=== PATIENT | female | born 1945 | race Caucasian/White ===

== ENCOUNTER 2017-07-16 19:26 | Inpatient (IN) | payer MEDICARE, MEDICAID ==
[~2017-07-16] VITALS: Ht 154.9 cm; Wt 82.6 kg
[~2017-07-16 19:26] MED LIST: AMLO10TA4 PO; AMLO1TAB39 PO; ATOR20TA PO; ATOR20TA65 PO; DILT180C54 PO; FURO20TA4 PO; LORA10TA7 PO; MECL-109 PO; MONT10TA21 PO; MONT10TA24 PO; POTA20TA82 PO; PROAIR INH; RIVA20TA PO; SOTA80TA PO
[2017-07-16] MEDS ORDERED: NITROGLYCERIN OINT 1GM/INCH UDPKT TD STA (20:21)
[2017-07-16] MEDS ORDERED: ONDANSETRON HCL 4MG/2ML VIAL IV STA (20:21)
[2017-07-16] MEDS ORDERED: ASPIRIN 81MG TABLET PO STA (20:21)
[2017-07-16] MEDS ORDERED: MORPHINE SULFATE 4 MG/ML CPJ (NOT FOR IM USE) IV STA (20:21)
[2017-07-16 20:37] LABS: BASOPHILS % 1.3 % (0.0-2.0); EOSINOPHILS % 2.2 % (0.0-5.0); HEMOGLOBIN. 11.5 g/dL (12.0-16.0); MEAN CORPUSCULAR HEMOGLOBIN 25.4 pg (28.0-32.0); MEAN CORPUSCULAR VOLUME 77.6 fL (81.0-99.0); MEAN PLATELET VOLUME 8.7 fl (7.4-10.4); MONOCYTES % 8.3 % (2.0-8.0); NEUTROPHILS % 64.2 % (40.0-76.0); PLATELET 287 x1000/uL (130-400); RED BLOOD CELL COUNT 4.51 mill/uL (4.2-5.4); RED CELL DISTRIBUTION WIDTH 15.9 % (11.6-14.6)
[2017-07-16 20:42] LABS: CHLORIDE 109 mEq/L (98-107)
[2017-07-16 20:47] LABS: CARBON DIOXIDE 27 mEq/L (21-32)
[2017-07-16 20:53] LABS: CREATINE KINASE 100 IU/L (26-192); TROPONIN I < 0.02 ng/mL (0.00-0.04)
[2017-07-16 20:58] LABS: CREATINE KINASE MB FRACTION 1.5 ng/mL (0.5-3.6)
[2017-07-16] MEDS ORDERED: CLONIDINE 0.1MG TABLET PO PRN (21:00)
[2017-07-16] MEDS ORDERED: ZOLPIDEM TARTRATE 5MG TABLET PO PRN (21:00)
[2017-07-16] MEDS ORDERED: MAGNESIUM/ALUMINUM HYDROXIDE/SIMETHICONE 30ML UDC PO PRN (21:00)
[2017-07-16] MEDS ORDERED: GUAIFENESIN 200MG/10ML SUGAR FREE UDC PO PRN (21:00)
[2017-07-16] MEDS ORDERED: MORPHINE SULFATE 2 MG/ML CPJ (NOT FOR IM USE) IV PRN (21:00)
[2017-07-16] MEDS ORDERED: ACETAMINOPHEN 325MG TABLET PO PRN (21:00)
[2017-07-16] MEDS ORDERED: DIPHENHYDRAMINE 50MG/ML VIAL IV PRN (21:00)
[2017-07-16] MEDS ORDERED: NA PHOS,M-B/NA PHOS,DI-BA ENEMA 118ML PR PRN (21:00)
[2017-07-16] MEDS ORDERED: ONDANSETRON HCL 4MG/2ML VIAL IV PRN (21:00)
[2017-07-16] MEDS ORDERED: LORAZEPAM 2MG/ML CPJ IV PRN (21:00)
[2017-07-16] MEDS ORDERED: DOCUSATE SODIUM 100MG CAPSULE PO PRN (21:00)
[2017-07-16] MEDS ORDERED: IPRATROPIUM/ALBUTEROL 0.5-3(2.5)MG/3ML NEB INH PRN (21:00)
[2017-07-16 21:04] LABS: INR 1.5; PARTIAL THROMBOPLASTIN TIME 32.7 sec (23.4-31.0); PROTHROMBIN TIME 15.4 sec (9.4-11.6)
[2017-07-16] MEDS: TRAMADOL 50MG TABLET PO PRN (23:05)
[2017-07-16] MEDS: DILTIAZEM HCL 60MG TABLET PO SCH (23:06)
[2017-07-16] MEDS ORDERED: DEXTROSE 50% WATER 50ML SYRINGE IV PRN (23:15)
[2017-07-16] MEDS ORDERED: POTASSIUM CHLORIDE 20MEQ TABLET SR PO ONE (23:15)
[2017-07-17] MEDS ORDERED: DEXL60CA3 PO (00:15)
[2017-07-17] MEDS: TRAMADOL 50MG TABLET PO PRN (04:23)
[2017-07-17 04:50] LABS: CLARITY URINE CLEAR (CLEAR); COLOR URINE YELLOW (YELLOW); KETONES URINE NEGATIVE (NEGATIVE); LEUKOCYTE ESTERASE URINE NEGATIVE (NEGATIVE); NITRITE URINE NEGATIVE (NEGATIVE); OCCULT BLOOD URINE 1+ (NEGATIVE); PH URINE 5.5 (4.5-8.0); PROTEIN URINE NEGATIVE (NEGATIVE); SPECIFIC GRAVITY URINE 1.016 (1.005-1.030); UROBILINOGEN URINE 0.2 E.U./dL (0.2-1.0)
[2017-07-17] MEDS: DILTIAZEM HCL 60MG TABLET PO SCH ×2 (05:13→13:47)
[2017-07-17 06:33] LABS: *AMPHETAMINES SCREEN URINE NEGATIVE (NEGATIVE); *BARBITURATES SCREEN URINE NEGATIVE (NEGATIVE); *BENZODIAZEPINES SCREEN URINE NEGATIVE (NEGATIVE); *COCAINE SCREEN URINE NEGATIVE (NEGATIVE); CANNABINOID URINE SCREEN NEGATIVE (NEGATIVE); METHADONE URINE SCREEN NEGATIVE (NEGATIVE); OPIATES URINE SCREEN PRESUMTIVE POSITIVE (NEGATIVE); PHENCYCLIDINE URINE SCREEN NEGATIVE (NEGATIVE)
[2017-07-17] MEDS: BLOOD SUGAR DIAGNOSTIC STRIP TEST SCH ×4 (06:45→21:00)
[2017-07-17] MEDS: INSULIN LISPRO 100 UNITS/ML SUBCUT SCH ×4 (08:10→21:00)
[2017-07-17] MEDS: ZINC SULFATE 220 MG ( 50 ) CAPSULE PO SCH (08:53)
[2017-07-17] MEDS: LOSARTAN POTASSIUM 50 MG TABLET PO SCH (08:54)
[2017-07-17] MEDS: ATORVASTATIN CALCIUM 20MG TABLET PO SCH (08:57)
[2017-07-17] MEDS ORDERED: RIVAROXABAN 10 MG TABLET PO SCH (09:00)
[2017-07-17] MEDS: FAMOTIDINE 20MG/2ML VIAL IV SCH ×2 (09:15→21:00)
[2017-07-17] MEDS: LORATADINE 10MG TABLET PO SCH (12:02)
[2017-07-17] MEDS ORDERED: LORAZEPAM 0.5MG TABLET PO NR (16:40)
[2017-07-17] MEDS ORDERED: MONTELUKAST SODIUM 10MG TABLET PO SCH (17:00)
[2017-07-17] MEDS: DILTIAZEM HCL 90MG TABLET PO SCH (22:00)
[2017-07-18] MEDS: BLOOD SUGAR DIAGNOSTIC STRIP TEST SCH ×2 (06:05→12:17)
[2017-07-18] MEDS: DILTIAZEM HCL 90MG TABLET PO SCH ×2 (06:13→13:14)
[2017-07-18 06:27] LABS: BASOPHILS % 1.2 % (0.0-2.0); EOSINOPHILS % 5.1 % (0.0-5.0); HEMATOCRIT. 36.1 % (36.0-48.0); HEMOGLOBIN. 11.7 g/dL (12.0-16.0); LYMPHOCYTES % 38.1 % (20.0-50.0); MEAN CORPUSCULAR HEMOGLOBIN 25.1 pg (28.0-32.0); MEAN CORPUSCULAR VOLUME 77.7 fL (81.0-99.0); MEAN PLATELET VOLUME 8.9 fl (7.4-10.4); MONOCYTES % 8.5 % (2.0-8.0); NEUTROPHILS % 47.1 % (40.0-76.0); PLATELET 298 x1000/uL (130-400); RED BLOOD CELL COUNT 4.65 mill/uL (4.2-5.4)
[2017-07-18] MEDS: INSULIN LISPRO 100 UNITS/ML SUBCUT SCH ×2 (07:19→12:17)
[2017-07-18] MEDS ORDERED: LORAZEPAM 0.5MG TABLET PO SCH (08:00)
[2017-07-18] MEDS: ZINC SULFATE 220 MG ( 50 ) CAPSULE PO SCH (08:14)
[2017-07-18] MEDS: FAMOTIDINE 20MG/2ML VIAL IV SCH (08:14)
[2017-07-18] MEDS: LORATADINE 10MG TABLET PO SCH (08:14)
[2017-07-18] MEDS: LOSARTAN POTASSIUM 50 MG TABLET PO SCH (08:14)
[2017-07-18] MEDS: ATORVASTATIN CALCIUM 20MG TABLET PO SCH (08:14)
[2017-07-18 08:19] LABS: CHLORIDE 105 mEq/L (98-107)
[2017-07-18 08:38] LABS: CARBON DIOXIDE 26 mEq/L (21-32)
[2017-07-18 14:42] VITALS: BP 122/66
[2017-07-18] MEDS ORDERED: RIVAROXABAN 20 MG TABLET PO SCH (17:00)
== END 2017-07-18 15:06 | disposition home or self-care (01) | DRG 309 ==
LOC: EDBEDREQ 20:44 → SUPCPDRO 20:57 → ENRESERV 21:20 → ER 21:46 → 7WST 22:00
PROVIDERS: ADMIT Internal Medicine; ATTEND Internal Medicine
DX: I48.91 Unspecified atrial fibrillation (principal); E44.1 Mild protein-calorie malnutrition; J44.9 Chronic obstructive pulmonary disease, unspecified; D64.9 Anemia, unspecified; I51.81 Takotsubo syndrome; R07.89 Other chest pain; I25.2 Old myocardial infarction; I10 Essential (primary) hypertension; G43.909 Migraine, unspecified, not intractable, without status migrainosus; E78.5 Hyperlipidemia, unspecified; E66.9 Obesity, unspecified; E78.00 Pure hypercholesterolemia, unspecified; E87.6 Hypokalemia; F41.9 Anxiety disorder, unspecified; G47.33 Obstructive sleep apnea (adult) (pediatric); K21.9 Gastro-esophageal reflux disease without esophagitis; Z88.1 Allergy status to other antibiotic agents; Z91.041 Radiographic dye allergy status; Z88.0 Allergy status to penicillin; Z79.01 Long term (current) use of anticoagulants; Z79.82 Long term (current) use of aspirin; Z91.09 Other allergy status, other than to drugs and biological substances; Z79.899 Other long term (current) drug therapy; Z68.34 Body mass index [BMI] 34.0-34.9, adult
CPT/HCPCS: 36415; 71010; 80048; 80053; 80061; 80305; 81001; 82550; 82553; 82962; 83036; 83690; 83735; 83880; 84443; 84484; 85025; 85610; 85730; 87086; 93005; 93306; 93970; 96374; 96375; 99291; J2270; J2405; J3490

== ENCOUNTER 2017-08-26 20:44 | Observation (INO) | payer MEDICARE, MEDICAID ==
[~2017-08-26] VITALS: Ht 154.9 cm; Wt 81.6 kg
[~2017-08-26 20:44] MED LIST changes: -ATOR20TA65 PO; +DEXL60CA3 PO
[2017-08-26] MEDS ORDERED: MORPHINE SULFATE 4 MG/ML CPJ (NOT FOR IM USE) IV STA (21:32)
[2017-08-26] MEDS ORDERED: SODIUM CHLORIDE 0.9% 1,000 ML IV ONE (21:32)
[2017-08-26] MEDS ORDERED: ONDANSETRON HCL 4MG/2ML VIAL IV STA (21:32)
[2017-08-26 22:10] LABS: HEMATOCRIT. 34.5 % (36.0-48.0); HEMOGLOBIN. 10.9 g/dL (12.0-16.0); MEAN CORPUSCULAR HEMOGLOBIN 24.3 pg (28.0-32.0); MEAN CORPUSCULAR VOLUME 76.4 fL (81.0-99.0); MEAN PLATELET VOLUME 8.8 fl (7.4-10.4); PLATELET 286 x1000/uL (130-400); RED BLOOD CELL COUNT 4.51 mill/uL (4.2-5.4)
[2017-08-26 22:17] LABS: CHLORIDE 101 mEq/L (98-107)
[2017-08-26 22:20] LABS: INR 1.4; PARTIAL THROMBOPLASTIN TIME 31.3 sec (23.4-31.0)
[2017-08-26 22:23] LABS: CARBON DIOXIDE 28 mEq/L (21-32)
[2017-08-26 22:27] LABS: TROPONIN I < 0.02 ng/mL (0.00-0.04)
[2017-08-26 22:31] LABS: PLATELET ESTIMATE NORMAL
[2017-08-26] MEDS ORDERED: ASPIRIN 325MG EC TABLET PO ONE (23:00)
[2017-08-27 02:00] VITALS: BP 112/69
[2017-08-27] MEDS ORDERED: MORPHINE SULFATE 4 MG/ML CPJ (NOT FOR IM USE) IV PRN (03:45)
[2017-08-27 04:00] VITALS: BP 122/64
[2017-08-27] MEDS: SODIUM CHLORIDE 0.9% 1,000 ML IV SCH ×2 (07:05→21:16)
[2017-08-27 07:31] LABS: TROPONIN I < 0.02 ng/mL (0.00-0.04)
[2017-08-27 08:30] VITALS: BP 118/69
[2017-08-27] MEDS: PANTOPRAZOLE SODIUM 40 MG/VIAL IV SCH (08:43)
[2017-08-27] MEDS: ASPIRIN 81MG TABLET PO SCH (08:44)
[2017-08-27] MEDS: METOPROLOL TARTRATE 50MG TABLET PO SCH ×2 (08:44→21:11)
[2017-08-27] MEDS ORDERED: ENOXAPARIN 40MG/0.4ML SYR SUBCUT SCH (09:00)
[2017-08-27 12:57] VITALS: BP 112/65
[2017-08-27] MEDS ORDERED: CLONIDINE 0.1MG TABLET PO PRN (14:30)
[2017-08-27] MEDS ORDERED: ACETAMINOPHEN 500MG TABLET PO PRN (14:30)
[2017-08-27] MEDS ORDERED: CLONIDINE 0.2MG TABLET PO PRN (14:30)
[2017-08-27 15:44] LABS: AMYLASE 25 IU/L (25-115)
[2017-08-27 16:52] VITALS: BP 129/6
[2017-08-27] MEDS ORDERED: RIVAROXABAN 20 MG TABLET PO SCH (17:00)
[2017-08-27 21:36] VITALS: BP 136/58
[2017-08-28] VITALS: BP_SYST 124; BP_SYST 128; BP_SYST 130; BP_DIAS 61; BP_DIAS 64; BP_DIAS 66
[2017-08-28 04:00] VITALS: BP 119/68
[2017-08-28 06:07] LABS: HEMATOCRIT. 36.1 % (36.0-48.0); HEMOGLOBIN. 11.8 g/dL (12.0-16.0); MEAN CORPUSCULAR HEMOGLOBIN 24.7 pg (28.0-32.0); MEAN CORPUSCULAR VOLUME 75.7 fL (81.0-99.0); MEAN PLATELET VOLUME 8.9 fl (7.4-10.4); PLATELET 281 x1000/uL (130-400); RED BLOOD CELL COUNT 4.76 mill/uL (4.2-5.4)
[2017-08-28 06:51] LABS: CHLORIDE 104 mEq/L (98-107)
[2017-08-28 08:00] LABS: CARBON DIOXIDE 26 mEq/L (21-32); HDL CHOLESTEROL 54 mg/dL (40-59); LDL CHOLESTEROL 60 mg/dL (5-100); TROPONIN I < 0.02 ng/mL (0.00-0.04)
[2017-08-28] MEDS: METOPROLOL TARTRATE 50MG TABLET PO SCH (09:00)
[2017-08-28 09:07] VITALS: BP 98/52
[2017-08-28] MEDS: ASPIRIN 81MG TABLET PO SCH (09:36)
[2017-08-28] MEDS: PANTOPRAZOLE SODIUM 40 MG/VIAL IV SCH (09:38)
[2017-08-28] MEDS ORDERED: POTASSIUM CHLORIDE 20MEQ TABLET SR PO NR (11:00)
[2017-08-28] MEDS ORDERED: LORATADINE 10MG TABLET PO SCH (11:00)
[2017-08-28] MEDS ORDERED: DILTIAZEM HCL 30MG TABLET PO SCH (12:00)
[2017-08-28 12:08] VITALS: BP 102/58
[2017-08-28] MEDS ORDERED: GUAIFENESIN 200MG/10ML SUGAR FREE UDC PO PRN (12:45)
[2017-08-28] MEDS ORDERED: PROMETHAZINE LIQUID 6.25MG/5ML 118ML PO PRN (12:45)
[2017-08-28] MEDS ORDERED: AZITHROMYCIN 500 MG in DEXT 5% WATER 250 ML IV SCH (14:00)
[2017-08-28 16:35] VITALS: BP 108/73
[2017-08-28 17:56] LABS: PLATELET ESTIMATE NORMAL
== END 2017-08-28 16:25 | disposition home or self-care (01) ==
LOC: ER 21:23 → 6WST 23:28 → INTOOBSV 23:28 → ENRESERV 23:38
PROVIDERS: ADMIT Internal Medicine; ATTEND Internal Medicine
DX: R42 Dizziness and giddiness (principal); R10.84 Generalized abdominal pain; I48.2 Chronic atrial fibrillation; E78.00 Pure hypercholesterolemia, unspecified; E66.9 Obesity, unspecified; K21.9 Gastro-esophageal reflux disease without esophagitis; D64.9 Anemia, unspecified; J45.909 Unspecified asthma, uncomplicated; I51.81 Takotsubo syndrome; I11.9 Hypertensive heart disease without heart failure; Z88.0 Allergy status to penicillin; Z88.8 Allergy status to other drugs, medicaments and biological substances; Z88.6 Allergy status to analgesic agent; Z91.041 Radiographic dye allergy status
CPT/HCPCS: 36415; 70450; 71010; 76705; 80053; 80061; 82150; 83690; 83735; 83880; 84443; 84484; 85025; 85379; 85610; 85730; 86850; 86900; 86901; 93005; 93880; 96361; 96365; 96375; 96376; 99285; C9113; G0378; J0456; J2270; J2405; J7030; 96374; J1650; J7060

== ENCOUNTER 2018-01-11 09:57 | Emergency (ER) | payer MEDICARE, MEDICAID ==
[~2018-01-11] VITALS: Ht 154.9 cm; Wt 81.0 kg
[2018-01-11] MEDS ORDERED: SODIUM CHLORIDE 0.9% 1,000 ML IV ONE ×2 (11:02→13:30)
[2018-01-11] MEDS ORDERED: ONDANSETRON HCL 4MG/2ML VIAL IV STA (11:02)
[2018-01-11] MEDS ORDERED: MORPHINE SULFATE 4 MG/ML CPJ (NOT FOR IM USE) IV STA (11:02)
[2018-01-11] MEDS ORDERED: FAMOTIDINE 20MG/2ML VIAL IV STA (11:02)
[2018-01-11 11:39] LABS: BASOPHILS % 0.4 % (0.0-2.0); EOSINOPHILS % 0.1 % (0.0-5.0); HEMATOCRIT. 37.2 % (36.0-48.0); HEMOGLOBIN. 12.2 g/dL (12.0-16.0); LYMPHOCYTES % 7.7 % (20.0-50.0); MEAN CORPUSCULAR HEMOGLOBIN 24.6 pg (28.0-32.0); MEAN CORPUSCULAR VOLUME 74.9 fL (81.0-99.0); MEAN PLATELET VOLUME 8.6 fl (7.4-10.4); MONOCYTES % 8.2 % (2.0-8.0); NEUTROPHILS % 83.6 % (40.0-76.0); PLATELET 280 x1000/uL (130-400); RED BLOOD CELL COUNT 4.97 mill/uL (4.2-5.4); RED CELL DISTRIBUTION WIDTH 18.3 % (11.6-14.6)
[2018-01-11 11:43] LABS: CHLORIDE 103 mEq/L (98-107)
[2018-01-11 11:44] LABS: INR 1.1; PARTIAL THROMBOPLASTIN TIME 26.4 sec (23.4-31.0); PROTHROMBIN TIME 11.6 sec (9.4-11.6)
[2018-01-11 12:55] LABS: CLARITY URINE CLEAR (CLEAR); COLOR URINE YELLOW (YELLOW); KETONES URINE NEGATIVE (NEGATIVE); LEUKOCYTE ESTERASE URINE NEGATIVE (NEGATIVE); NITRITE URINE NEGATIVE (NEGATIVE); OCCULT BLOOD URINE 2+ (NEGATIVE); PH URINE 7.5 (4.5-8.0); PROTEIN URINE NEGATIVE (NEGATIVE); SPECIFIC GRAVITY URINE 1.014 (1.005-1.030); UROBILINOGEN URINE 0.2 E.U./dL (0.2-1.0)
[2018-01-11] MEDS ORDERED: SODIUM CHLORIDE 0.9% 1,000 ML IV NR (14:30)
[2018-01-11] MEDS: LEVOFLOXACIN 250MG TABLET PO NR ×2 (14:34→15:57)
[2018-01-11] MEDS ORDERED: DILTIAZEM HCL 5MG/ML 5ML VIAL IV ONE (15:00)
[2018-01-11] MEDS ORDERED: ONDANSETRON HCL 4MG/2ML VIAL IV ONE (16:15)
[2018-01-11 16:30] VITALS: BP 129/68
== END 2018-01-11 17:06 | disposition home or self-care (01) ==
LOC: ER 10:30
DX: B34.9 Viral infection, unspecified (principal); I48.91 Unspecified atrial fibrillation; N39.0 Urinary tract infection, site not specified; I10 Essential (primary) hypertension; E78.00 Pure hypercholesterolemia, unspecified; Z79.01 Long term (current) use of anticoagulants; Z88.0 Allergy status to penicillin; Z88.8 Allergy status to other drugs, medicaments and biological substances; I25.10 Atherosclerotic heart disease of native coronary artery without angina pectoris; I51.7 Cardiomegaly
CPT/HCPCS: 36415; 74176; 80053; 81001; 83690; 85025; 85610; 85730; 93005; 96361; 96374; 96375; 96376; 99285; J2270; J2405; J3490; J7030

== ENCOUNTER 2018-02-24 08:39 | Emergency (ER) | payer MEDICARE, MEDICAID ==
[~2018-02-24] VITALS: Ht 154.9 cm; Wt 78.0 kg
[2018-02-24 09:59] LABS: CLARITY URINE CLEAR (CLEAR); COLOR URINE YELLOW (YELLOW); KETONES URINE NEGATIVE (NEGATIVE); LEUKOCYTE ESTERASE URINE NEGATIVE (NEGATIVE); NITRITE URINE NEGATIVE (NEGATIVE); OCCULT BLOOD URINE 2+ (NEGATIVE); PH URINE 5.5 (4.5-8.0); PROTEIN URINE NEGATIVE (NEGATIVE); SPECIFIC GRAVITY URINE 1.018 (1.005-1.030); UROBILINOGEN URINE 0.2 E.U./dL (0.2-1.0)
[2018-02-24] MEDS ORDERED: FAMOTIDINE 20MG/2ML VIAL IV STA (10:07)
[2018-02-24] MEDS ORDERED: SODIUM CHLORIDE 0.9% 1,000 ML IV ONE (10:07)
[2018-02-24] MEDS ORDERED: ONDANSETRON HCL 4MG/2ML VIAL IV STA (10:07)
[2018-02-24] MEDS ORDERED: MAGNESIUM/ALUMINUM HYDROXIDE/SIMETHICONE 30ML UDC PO STA (10:07)
[2018-02-24] MEDS ORDERED: VISCOUS LIDOCAINE 2% 15 ML UDC MM ONE (10:15)
[2018-02-24 10:39] LABS: BASOPHILS % 1.3 % (0.0-2.0); EOSINOPHILS % 1.7 % (0.0-5.0); HEMATOCRIT. 37.1 % (36.0-48.0); HEMOGLOBIN. 12.3 g/dL (12.0-16.0); LYMPHOCYTES % 22.1 % (20.0-50.0); MEAN CORPUSCULAR HEMOGLOBIN 25.8 pg (28.0-32.0); MEAN CORPUSCULAR VOLUME 77.9 fL (81.0-99.0); MEAN PLATELET VOLUME 8.6 fl (7.4-10.4); MONOCYTES % 8.7 % (2.0-8.0); NEUTROPHILS % 66.2 % (40.0-76.0); PLATELET 302 x1000/uL (130-400); RED BLOOD CELL COUNT 4.76 mill/uL (4.2-5.4); RED CELL DISTRIBUTION WIDTH 19.2 % (11.6-14.6)
[2018-02-24 10:43] LABS: CHLORIDE 109 mEq/L (98-107)
[2018-02-24] MEDS ORDERED: POTASSIUM CHLORIDE 20MEQ TABLET SR PO ONE (12:45)
[2018-02-24 13:19] VITALS: BP 136/86
== END 2018-02-24 14:00 | disposition home or self-care (01) ==
LOC: ER 09:05
DX: K29.00 Acute gastritis without bleeding (principal); I10 Essential (primary) hypertension; I48.91 Unspecified atrial fibrillation; E78.00 Pure hypercholesterolemia, unspecified; Z88.8 Allergy status to other drugs, medicaments and biological substances; Z88.0 Allergy status to penicillin
CPT/HCPCS: 36415; 80053; 81003; 83690; 85025; 93005; 96361; 96374; 96375; 99285; J2405; J3490; J7030

== ENCOUNTER 2020-01-27 10:34 | Emergency (ER) | payer MEDICARE, MEDICAID ==
[~2020-01-27] VITALS: Ht 154.9 cm; Wt 84.0 kg
[~2020-01-27 10:34] MED LIST changes: -MECL-109 PO; +MECL-159 PO; -MONT10TA24 PO; +MONT10TA26 PO
[2020-01-27 12:51] LABS: BASOPHILS % 1.2 % (0.0-2.0); HEMATOCRIT. 39.2 % (36.0-48.0); LYMPHOCYTES % 30.4 % (20.0-50.0); MEAN CORPUSCULAR HEMOGLOBIN 26.6 pg (28.0-32.0); MEAN CORPUSCULAR VOLUME 80.3 fL (81.0-99.0); MEAN PLATELET VOLUME 8.6 fl (7.4-10.4); NEUTROPHILS % 59.4 % (40.0-76.0); PLATELET 280 x1000/uL (130-400); RED BLOOD CELL COUNT 4.89 mill/uL (4.2-5.4); RED CELL DISTRIBUTION WIDTH 16.2 % (11.6-14.6)
[2020-01-27 12:58] LABS: CHLORIDE 107 mEq/L (98-107)
[2020-01-27 13:20] VITALS: BP 140/82
== END 2020-01-27 13:38 | disposition home or self-care (01) ==
LOC: ER 10:34
DX: I48.91 Unspecified atrial fibrillation (principal); M79.605 Pain in left leg; E78.00 Pure hypercholesterolemia, unspecified; I10 Essential (primary) hypertension; Z79.899 Other long term (current) drug therapy; Z88.0 Allergy status to penicillin; Z88.6 Allergy status to analgesic agent; Z88.8 Allergy status to other drugs, medicaments and biological substances; Z91.041 Radiographic dye allergy status
CPT/HCPCS: 36415; 80048; 85025; 93005; 99284

== ENCOUNTER → 2022-02-05 | Day surgery (SDC) | payer MEDICARE, MEDICAID ==
[~2022-02-05] MED LIST changes: +LIDOCAINE HCL/PF 1% 10 MG/ML 5ML VIAL ONE; -MONT10TA26 PO; +MONT10TA32 PO; +SODIUM BICARBONATE 4% (2.4MEQ) 5ML VIAL IV ONE
== END | disposition home or self-care (01) ==
LOC: RAD 12:28
PROVIDERS: ATTEND Internal Medicine Endocrinology, Diabetes & Metabolism
DX: E04.1 Nontoxic single thyroid nodule (principal); Z79.899 Other long term (current) drug therapy; Z88.0 Allergy status to penicillin; Z88.1 Allergy status to other antibiotic agents; Z91.041 Radiographic dye allergy status; Z98.890 Other specified postprocedural states; Z88.8 Allergy status to other drugs, medicaments and biological substances; Z82.49 Family history of ischemic heart disease and other diseases of the circulatory system
CPT/HCPCS: 10005; J3490

== ENCOUNTER → 2022-04-23 | Day surgery (SDC) | payer MEDICARE, MEDICAID | END | disposition home or self-care (01) | LOC: RAD 12:48 | PROVIDERS: ATTEND Internal Medicine Endocrinology, Diabetes & Metabolism | DX: E04.1 Nontoxic single thyroid nodule (principal); Z79.899 Other long term (current) drug therapy; Z98.890 Other specified postprocedural states; Z88.0 Allergy status to penicillin; Z88.1 Allergy status to other antibiotic agents; Z88.8 Allergy status to other drugs, medicaments and biological substances | CPT/HCPCS: 10005; 88172; 88173; J3490 ==

== ENCOUNTER 2023-02-13 15:21 | Emergency (ER) | payer MEDICARE, MEDICAID ==
[~2023-02-13] VITALS: Ht 160 cm; Wt 78.0 kg
[~2023-02-13 15:21] MED LIST changes: -LIDOCAINE HCL/PF 1% 10 MG/ML 5ML VIAL ONE; +MONT-39 PO; +MONT-46 PO; -MONT10TA21 PO; -MONT10TA32 PO; +POTA-204 PO; -POTA20TA82 PO; -SODIUM BICARBONATE 4% (2.4MEQ) 5ML VIAL IV ONE
[2023-02-13 15:23] VITALS: BP 157/79
[2023-02-13] MEDS ORDERED: ACETAMINOPHEN 325MG TABLET PO ONE (16:30)
[2023-02-13 17:20] LABS: BASOPHILS % 0.8 % (0.0-2.0); HEMATOCRIT. 39.5 % (36.0-48.0); HEMOGLOBIN. 13.2 g/dL (12.0-16.0); LYMPHOCYTES % 28.4 % (20.0-50.0); MEAN CORPUSCULAR HEMOGLOBIN 29.2 pg (28.0-32.0); MEAN CORPUSCULAR VOLUME 87.6 fL (81.0-99.0); MEAN PLATELET VOLUME 9.6 fl (7.4-10.4); MONOCYTES % 6.8 % (2.0-8.0); PLATELET 217 x1000/uL (130-400); RED BLOOD CELL COUNT 4.51 mill/uL (4.2-5.4); RED CELL DISTRIBUTION WIDTH 14.6 % (11.6-14.6)
[2023-02-13 17:25] LABS: CHLORIDE 108 mEq/L (98-107)
[2023-02-13 17:28] LABS: INR 1.1; PARTIAL THROMBOPLASTIN TIME 34.1 sec (23.4-31.0); PROTHROMBIN TIME 12.1 sec (9.6-11.0)
[2023-02-13] MEDS ORDERED: TOPUD MT (18:38)
== END 2023-02-13 18:49 | disposition home or self-care (01) ==
LOC: ER 15:21
DX: R07.89 Other chest pain (principal); S63.501A Unspecified sprain of right wrist, initial encounter; W18.39XA Other fall on same level, initial encounter; Y93.89 Activity, other specified; Y92.89 Other specified places as the place of occurrence of the external cause; Y99.8 Other external cause status; I48.91 Unspecified atrial fibrillation; J45.909 Unspecified asthma, uncomplicated; E78.00 Pure hypercholesterolemia, unspecified; I10 Essential (primary) hypertension; Z79.899 Other long term (current) drug therapy
CPT/HCPCS: 36415; 71046; 73110; 73130; 80053; 84484; 85025; 93005; 99285